=== PATIENT | male | born 1940 | race Caucasian/White ===

== ENCOUNTER 2018-09-15 12:58 | Inpatient (IN) | payer MEDICARE, OTHER ==
[~2018-09-15] VITALS: Ht 172.7 cm; Wt 96.7 kg
[~2018-09-15 12:58] MED LIST: ALLEGRA 180MG180 MG PO; ASPIRIN 81M81 MG/TA2 PO; CENTRUM SILVER1 TA1 PO; CLEOCIN HCL300 MG PO; FERROUS SULFATE65 MG PO; HCTZ12.5TAB PO; LIPITOR20 MG PO; MICARDIS80 MG PO; MOBIC15 MG PO; MULTAQ400 MG PO; PRILOSEC 20MG20 MG PO; TOPROL XL 50MG50 MG PO; TRICOR145 MG PO; ZYLOPRIM 300MG300 MG PO
[2018-10-26] VITALS (9 sets, daily range): BP systolic 100–131; BP diastolic 56–78; PULSE 54–74; TEMP 97.6–97.9
--- NOTE | 2018-10-26 09:36 | NUR ---
Initial visit; Patient and his thanked Extra Gang Supervisor for looking in on him and offering encouragement and prayer.
--- NOTE | 2018-10-26 13:10 | NUR ---
PATIENT BACK IN ROOM 327 POST OP RTH. VERY DROWSY. LEFT BEFORE PATIENT GOT BACK DUE TO BAD WEATHER. NO FAMILY AT BEDSIDE. PATIENT SLEEPING. VSS. NO C/O PAIN. RTH DRESSING IS CD&I WITH AQUACEL AND ICE PACK INPLACE. TEDS & SCD'S TO BLE. POSITIVE PEDAL PULSES TO BLE. PEREZ TO DEPENDENT DRAINAGE WITH SMALL AMOUNTS OF CLEAR YELLOW URINE NOTED. IV FLUIDS INFUSING VIA PUMP. NO C/O N/V. LIQUIDS AT BEDSIDE. HEAD TO TOE ASSESSMENT WNL. CALL LIGHT IN REACH.
--- NOTE | 2018-10-26 21:00 | NUR ---
Assessment completed. Patient is A&O x 4. VSS, currently on 2 liters of supplemental O2 via nasal cannula. Denied any pain while laying in bed. Reported a pain 2/10 after ambulating in the hallway, denied needing any pain medication. Aquacell dressing to right hip is CDI with an ice pack applied to hip. Pedal pulses intact. BLE aron hose/scds on. Hurtado catheter to DD with yellow clear urine draining. Tolerating diet with no c/o nausea. IVF infusing with intermittent antibiotic per orders. Ambulated with assist x [address] this evening with walker and gait belt approximately 150 feet with a steady gait. Denies any concerns or needs at this time. Bed is in a low position with call light in reach.
[2018-10-27 04:46] VITALS: BP 108/53; PULSE 71; TEMP 97.6
--- NOTE | 2018-10-27 05:41 | NUR ---
Patient has rested well through the night. VSS. Reports minimal pain to right hip that is controlled with the scheduled Tylenol, denies needing anything else for pain. Aquacell dressing to right hip remains CDI with a fresh ice pack applied this morning. Hurtado catheter remains to DD with yellow clear urine draining. IVF infusing with last antibiotic this morning then will be INT. Denies any concerns or needs at this time. Bed remains in a low position with call light in reach.
--- NOTE | 2018-10-27 06:45 | NUR ---
appears to be dozing but awakens easily, bedside shift report received from MINH Sosa
--- NOTE | 2018-10-27 06:50 | NUR ---
awake resting in bed, bedside shift report received from MINH Sosa
[2018-10-27 07:07] LABS: HEMOGLOBIN 11.2 g/dl (13.5-18.0)
[2018-10-27 07:32] VITALS: BP 102/53; PULSE 68; TEMP 97.9
--- NOTE | 2018-10-27 07:50 | NUR ---
resting in bed and breakfast ordered, full assessment completed, see interventions for further info, informed him that the scheduled tylenol he had been receiving was not scheduled now and if began having pain or discomfort would need to ask for pain meds, verbalizes understanding
--- NOTE | 2018-10-27 09:40 | NUR ---
physical therapy in to work with patient, ambulated out into stein and then back to room and into recliner
[2018-10-27 11:37] VITALS: BP 94/53; PULSE 65; TEMP 97.5
--- NOTE | 2018-10-27 12:15 | NUR ---
resting in recliner, has ordered lunch
[2018-10-27 13:03] VITALS: BP 107/57; PULSE 68
--- NOTE | 2018-10-27 13:12 | NUR ---
ambulated out to stein with physical therapy for group exercises
--- NOTE | 2018-10-27 14:15 | NUR ---
resting in bed, garay catheter discontinue, tolerated well
--- NOTE | 2018-10-27 14:21 | NUR ---
returned to room after therapy and into bed to rest,
--- NOTE | 2018-10-27 15:33 | NUR ---
SW met with the patient to discuss discharge plan. The patient lives in [place] with his , Robbin. He reports independence with ADLs and has a cane and walker. The patient's PCP is Dr. Ronni Daniel and he receives his medications on [facility]. The patient does not have advanced directives in EMR, but he states that he does have them completed. The patient plans to return home with his upon discharge and receive outpatient therapy at [facility] on 10/29. No additional needs at this time.
[2018-10-27 15:53] VITALS: BP 105/48; PULSE 71; TEMP 98
--- NOTE | 2018-10-27 16:20 | NUR ---
resting in bed without c/os
--- NOTE | 2018-10-27 18:19 | NUR ---
watching TV, had supper and tolerated well
--- NOTE | 2018-10-27 18:49 | NUR ---
bedside shift report given to MINH Sosa
--- NOTE | 2018-10-27 19:55 | NUR ---
Assessment completed. Patient is A&O x 4. VSS, on room air. Reports minimal pain, requested prn Tylenol. Aquacell dressing to right hip is CDI with a fresh ice pack applied. Pedal pulses intact. BLE aron hose/scds on. Tolerating diet with no c/o nausea. Voiding with no difficulities. INT to left forearm. Up with standby assist with walker and gait belt. ambulated 100 feet in the hallway this evening with staff. Denies any concerns or needs. Bed is in a low position with call light in reach.
[2018-10-27 20:07] VITALS: BP 105/54; PULSE 66; TEMP 98.7
[2018-10-28] VITALS (8 sets, daily range): BP systolic 96–122; BP diastolic 43–61; PULSE 63–93; TEMP 97.9–99.3
--- NOTE | 2018-10-28 00:55 | NUR ---
Patient sitting up on the edge of the bed stating he had a dream and thought for a minute he was at home but was able to remember he was in the hospital. Assisted with RLE back into bed and a fresh ice pack applied to hip. Patient denies any pain at this time. No concerns or needs. Bed is in a low position with call light in reach.
--- NOTE | 2018-10-28 03:29 | NUR ---
Bed alarm sounding. Patient getting out of bed when this nurse entered room without calling for assistance or using the walker. Reminded patient that he needs ot call when he needs to use the restroom. Steady gait with walker to restroom with standby assistance. Bed alarm on for impulsiveness with call light in reach.
--- NOTE | 2018-10-28 04:50 | NUR ---
Bed alarm sounding again, patient sitting up on the edge of the bed. When asked what he was doing he responded that he was going to take the girls home, once the light was turned on patient looked around and stated that he "must be dreaming again or it's the side effects from the funny juice." Assisted patient back into bed. Bed remains in a low position with bed alarm on and call light within reach.
--- NOTE | 2018-10-28 06:01 | NUR ---
Patient rested well the beginning of the shift and has been up multiple times without using the call light setting off the bed alarm, has had some forgetfulness through the night but has been able to easily re-orientate himself to situation. VSS. Continues to report minimal pain, prn Tylenol given. Aquacell dressing to right hip remains CDI with an ice pack maintained. Up with standby assist through the night with walker to the restroom, gait remains steady. Denies any concerns or needs at this time. Bed remains in a low position with bed alarm on for impulsivness with call light in reach.
[2018-10-28 06:39] LABS: HEMOGLOBIN 10.5 g/dl (13.5-18.0)
[2018-10-28 06:44] LABS: HEMATOCRIT 31.5 % (42.0-52.0)
--- NOTE | 2018-10-28 07:15 | NUR ---
Report given to MINH Faye
--- NOTE | 2018-10-28 08:00 | NUR ---
PATIENT IS ORIENTED X2. PATIENT WILL DISPLAY OCCATIONAL CONFUSION/FORGETFULNESS. ASIC DESIGN ENGINEER REPORTS PATIENT WAS CONFUSED LAST NIGHT AND TRIED TO GET UP SEVERAL TIMES SETTING OFF THE BED ALARM. PATIENT IS HIGH RISK TO FALL. PATIENT SEEMS MORE ORIENTED TODAY STATING "DO YOU EVER HAVE PATIENTS WHO HAVE VIVID DREAMS AND THEY THINK THEY ARE TRUE"? PATIENT EDUCATED ABOUT NARCOTICS. PATIENT REPORTS MINIMAL PAIN. NO NARCOTICS GIVEN. AM MEDS GIVEN. WHEN OFFERED BREAKFAST WITH MORNING PILLS, PATIENT WAS CONVINCED HE ALREADY ATE. NO BREAKFAST HAD BEEN ORDERED. PATIENT GIVEN COFFEE INSTEAD. RIGHT HIP DRESSING IS CD&I WITH AQUACEL. TEDS TO BLE. SCD'S CURRENTLY OFF. POSITIVE PEDAL PULSES TO BLE. PATIENT DRINK/VOIDING SUFFICENT AMOUNTS. HEAD TO TOE ASSESSMENT COMPLETE. PATIENT ASSISTED TO BEDSIDE CHAIR WITH CHAIR ALARM INPLACE AND CALL LIGHT IN REACH.
--- NOTE | 2018-10-28 10:25 | NUR ---
PATIENT CAUGHT SETTING OFF CHAIR ALARM. PATIENT DOESN'T SEEM TO REMEMBER TO CALL OF ASSISTANCE OR USE HIS WALKER. WHEN ALARM GOES OFF PATIENT IS OFTEN ALREADY STANDING AND MOVING AROUND ROOM. HE DOESN'T SEEM TO KNOW WHAT HE WANTS, JUST LIKES STRETCHING HIS LEGS. PATIENT GOING FOR A WALK IN THE HALLS WITH STAFF.
--- NOTE | 2018-10-28 11:30 | NUR ---
PATIENT FOUNDING SETTING OFF CHAIR ALARM AGAIN TRYING TO SAY GOOD BYE TO HIS VISITORS. CHAIR ALARM WENT OFF. PATIENT EDUCATED ABOUT SAFETY.
--- NOTE | 2018-10-28 12:22 | NUR ---
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 Nonfarm Animal Caretaker offered encouragement and God's blessings.
[2018-10-28 16:30] LABS: ALBUMIN 2.9 gm/dL (3.5-5.0); BILIRUBIN,TOTAL 0.4 mg/dL (0.0-1.0); CALCIUM 8.9 mg/dL (8.4-10.2); CREATININE, serum 0.94 mg/dL (0.66-1.25); TOTAL PROTEIN 5.5 gm/dL (6.4-8.2)
--- NOTE | 2018-10-28 19:50 | NUR ---
Pt. sitting up in bed watching TV at this time. Pt. is A&OX3, assessment complete. Dressing to rt. hip CDI. Pt. denies pain or other needs, call light within reach.
[2018-10-29 03:51] VITALS: BP 143/65; PULSE 77; TEMP 97.6
--- NOTE | 2018-10-29 06:50 | NUR ---
bedside shift report received from MINH Denton
[2018-10-29 08:45] VITALS: BP 116/69; PULSE 87; TEMP 99.9
--- NOTE | 2018-10-29 08:45 | NUR ---
sitting up in chair and has had breakfast, is alert and oriented this am, full assessment completed, see interventions for further info, medicated with tylenol 1000mg in anticipation of therapy
--- NOTE | 2018-10-29 09:01 | NUR ---
ambulated out to stein with physical therapy for group exercises
--- NOTE | 2018-10-29 10:30 | NUR ---
remains up in recliner after therapy
[2018-10-29 12:00] VITALS: BP 124/48; PULSE 82; TEMP 98
--- NOTE | 2018-10-29 12:00 | NUR ---
up and about in room independently, aquacel dressing to right hip removed, incision intact, covered with steri strips and then airstrip dressing
[2018-10-29] MEDS ORDERED: ASPI325T6 PO (13:16)
[2018-10-29] MEDS ORDERED: CELEBREX 200MG200 MG PO (13:17)
[2018-10-29] MEDS ORDERED: ULTRAM 50MG TAB50 MG PO (13:17)
--- NOTE | 2018-10-29 13:52 | NUR ---
Dr Richey was in to see patient, will plan discharge later this afternoon
--- NOTE | 2018-10-29 14:02 | NUR ---
The patient is to discharge back home with his today, 10/29, and begin outpatient [facility]. SW presented and explained the IM form to the patient. The patient verbalized understanding, signed, and he was provided a copy. No additional needs at this time.
--- NOTE | 2018-10-29 15:40 | NUR ---
discharge instructions given to patient and his , verbalizes understanding
--- NOTE | 2018-10-29 15:50 | NUR ---
discharged per WC
== END 2018-10-29 15:50 | disposition home or self-care (01) | DRG 470 ==
LOC: JCC 10-26 06:55
PROVIDERS: ADMIT Orthopaedic Surgery
PROC: 0SR90JA Replacement of Right Hip Joint with Synthetic Substitute, Uncemented, Open Approach (ICD-10-PCS; principal; 2018-10-26 10:30)
DX: M16.11 Unilateral primary osteoarthritis, right hip (principal); I10 Essential (primary) hypertension; I48.91 Unspecified atrial fibrillation; I25.10 Atherosclerotic heart disease of native coronary artery without angina pectoris; Z87.891 Personal history of nicotine dependence; Z95.0 Presence of cardiac pacemaker; E78.5 Hyperlipidemia, unspecified; Z85.828 Personal history of other malignant neoplasm of skin; I48.0 Paroxysmal atrial fibrillation
CPT/HCPCS: A4314; A9284; C1713; C1776; J0690; J1100; J2250; J2405; J2704; J3010; J7030; J7120

== ENCOUNTER → 2018-10-11 | Outpatient (CLI) | payer MEDICARE, OTHER | LOC: COL.LAB 09:38 | DX: Z01.812 Encounter for preprocedural laboratory examination (principal) ==

== ENCOUNTER 2023-10-20 06:49 | Day surgery (SDC) | payer MEDICARE, OTHER ==
[~2023-10-20] VITALS: Ht 172.7 cm; Wt 77.0 kg
[2023-10-20] VITALS (9 sets, daily range): BP systolic 97–127; BP diastolic 58–82; PULSE 60–67; TEMP 97.9
[~2023-10-20 06:49] MED LIST changes: +ASPI325T6 PO; +CELEBREX 200MG200 MG PO; +ULTRAM 50MG TAB50 MG PO
[2023-10-20] MEDS ORDERED: 1/2 NS 1,000 ML IV SCH (07:15)
[2023-10-20 07:53] LABS: HEMATOCRIT 38.8 % (42.0-52.0); HEMOGLOBIN 12.9 g/dl (13.5-18.0); MEAN CELL VOLUME 99 fl (80.0-100.0); MEAN CORPUSCULAR HEMOGLOBIN 33 pg (27-31); MEAN CORPUSCULAR HGB CONC 33 g/dl (33.0-37.0); MEAN PLATELET VOLUME 13.4 fl (7.4-10.4); RED BLOOD COUNT 3.91 M/mm3 (4.20-5.60); REDCELL DISTRIBUTION WIDTH-CV 14.6 % (11.5-14.5)
[2023-10-20] MEDS ORDERED: ASPIRIN 81M81 MG/TA2 PO (07:53)
[2023-10-20] MEDS ORDERED: MICARDIS HCT 121 TA1 PO (07:55)
[2023-10-20] MEDS ORDERED: MOBIC15 MG PO (07:57)
[2023-10-20 08:05] LABS: CALCIUM 9.2 mg/dL (8.4-10.2); CREATININE, serum 1.86 mg/dL (0.72-1.25)
[2023-10-20 08:07] LABS: POTASSIUM 5.1 mmol/L (3.5-4.5)
[2023-10-20 08:10] LABS: INR 1.1 (0.8-3.0); PROTHROMBIN TIME 12.3 SECONDS (9.7-12.8)
[2023-10-20 08:38] LABS: PLATELET COUNT 208 K/mm3 (130-400)
--- NOTE | 2023-10-20 09:38 | NUR ---
Please see merge documentation for record of interventions, vitals and medications administered during generator change.
[2023-10-20] MEDS ORDERED: NS 1,000 ML IV.SOLN. IR SCH (10:04)
[2023-10-20] MEDS ORDERED: Vancomycin 1 GM VIAL IR SCH (10:05)
[2023-10-20] MEDS ORDERED: Midazolam 2 MG/2 ML VIAL IV SCH (10:06)
[2023-10-20] MEDS ORDERED: fentaNYL 50 MCG/ML 2 ML VIAL IV SCH (10:07)
[2023-10-20] MEDS ORDERED: CLEOCIN HCL300 MG PO (11:41)
--- NOTE | 2023-10-20 12:58 | NUR ---
Pt ambulated to EU14 with a steady gait, accompanied by daughter and son-in-law. Pt is scheduled for a gen change. EKG done. IV started L forearm 20g, labs drawn. Consent for the procedure signed. Pt was taken to the general production laborer for the procedure. Post procedure the pt came back to EU14 to recover. Dressing on chest was assessed. The dressing remained clean, dry, and intact during the recovery. Pt was offered something to eat and drink, accepted a muffin and a sprite. Recovered with us for about 2hrs. At the end of the recovery the pt was given discharge education and information. No questions at this time. IV dc'd and site wrapped in coban. Pt exited the unit by wheelchair to son-in-laws truck.
== END 2023-10-20 12:50 | disposition home or self-care (01) ==
LOC: COL.CAR 06:49
PROVIDERS: Internal Medicine Cardiovascular Disease
DX: Z45.010 Encounter for checking and testing of cardiac pacemaker pulse generator [battery] (principal)
CPT/HCPCS: J0665; J2250; J3010; J3370; J7030; J7050

== ENCOUNTER 2023-11-25 05:13 | Inpatient (IN) | payer MEDICARE, OTHER ==
[~2023-11-25] VITALS: Ht 172.7 cm; Wt 76.8 kg
[~2023-11-25 05:13] MED LIST changes: +ELIQUIS 2.5 PO; +MICARDIS HCT 121 TA1 PO; -TOPROL XL 50MG50 MG PO; +TOPROL XL100 MG PO
[2023-11-30] VITALS (9 sets, daily range): BP systolic 124–140; BP diastolic 73–78; PULSE 60–80; TEMP 97.8–98.7
[2023-11-30] MEDS ORDERED: Magnes Hydrox (MOM) 80 MG/ML 30 ML CUP PO PRN (08:15)
[2023-11-30] MEDS ORDERED: Bisacodyl 5 MG TAB PO PRN (08:15)
[2023-11-30] MEDS ORDERED: Ondansetron 4 MG/2 ML VIAL IV PRN (08:15)
[2023-11-30 08:49] LABS: BASO # 0.1 K/mm3 (0.0-0.2); BASO % 0.9 % (0.0-2.0); EOS # 0.2 K/mm3 (0.0-0.7); EOS % 3.1 % (0.0-4.0); GRAN # 4.1 K/mm3 (1.4-6.5); GRAN % 74.6 % (42.2-75.2); HEMOGLOBIN 12.4 g/dl (13.5-18.0); LYMPH # 0.7 K/mm3 (1.2-3.4); LYMPH % 12.5 % (20.0-51.0); MEAN CELL VOLUME 97 fl (80.0-100.0); MEAN CORPUSCULAR HEMOGLOBIN 33 pg (27-31); MEAN CORPUSCULAR HGB CONC 34 g/dl (33.0-37.0); MEAN PLATELET VOLUME 12.8 fl (7.4-10.4); MONO # 0.5 K/mm3 (0.1-0.6); MONO % 8.5 % (1.7-9.3); PLATELET COUNT 185 K/mm3 (130-400); RED BLOOD COUNT 3.76 M/mm3 (4.20-5.60)
[2023-11-30 08:50] LABS: HEMATOCRIT 36.6 % (42.0-52.0)
[2023-11-30 08:52] LABS: INR 1.9 (0.8-3.0); PROTHROMBIN TIME 20.9 SECONDS (9.7-12.8)
[2023-11-30 09:14] LABS: ALBUMIN 3.7 gm/dL (3.4-4.8); BILIRUBIN,TOTAL 1.1 mg/dL (0.2-1.2); CALCIUM 9.2 mg/dL (8.4-10.2); CREATININE, serum 1.64 mg/dL (0.72-1.25); POTASSIUM 4.3 mmol/L (3.5-4.5); TOTAL PROTEIN 5.9 gm/dL (6.2-8.1)
[2023-11-30 09:32] LABS: MAGNESIUM 1.4 mg/dL (1.6-2.6)
--- NOTE | 2023-11-30 10:58 | NUR ---
asbestos hazard abatement worker met with patient and his daughter, Светлана at bedside to discuss discharge planning. Pt confirms his DPOA-HC is his daughter and grandson, Luis. SW verified this is on file. Pt reports his has . Pt states he lives alone in [place]. He sees Dr. Daniel and obtains medications from [facility] or delivery from [facility] with no difficulties. He is independent with ADLS and uses a cane for DME. He was informed PT/OT will come see him for assessing mobility. Pt intends to return home upon discharge. PT/OT Pending Discharge Plan: tbd, home
--- NOTE | 2023-11-30 20:55 | NUR ---
Patient assessed at this time. Alert and oriented, and able to make needs known. Denies having pain and discomfort. Peripheral INT to left forearm. Denies SOB and dyspnea. LS CTA. HRI. Telemetry in place: Vpaced. Voices no questions or concerns about Sotalol at this time. Aware of plan for daily EKG and labs. BSAx4. No edema. Voices no questions, needs, or concerns at this time. In bed with call light within reach.
[2023-11-30] MEDS ORDERED: Apixaban 2.5 MG TAB PO SCH (21:00)
[2023-11-30] MEDS ORDERED: Melatonin 3 MG TAB PO PRN (21:00)
[2023-12-01] VITALS (11 sets, daily range): BP systolic 133–167; BP diastolic 75–102; PULSE 65–83; TEMP 97.4–98.3
--- NOTE | 2023-12-01 06:06 | NUR ---
Patient has voiced no questions, needs, or concerns this shift. QTC this morning 514. Denies having pain and discomfort. In bed with call light within reach.
[2023-12-01] MEDS ORDERED: Omeprazole 20 MG **** subs to Pantoprazole 40 MG PO SCH (07:00)
[2023-12-01 07:02] LABS: BASO # 0.1 K/mm3 (0.0-0.2); BASO % 1.3 % (0.0-2.0); EOS # 0.2 K/mm3 (0.0-0.7); GRAN # 2.5 K/mm3 (1.4-6.5); GRAN % 64.9 % (42.2-75.2); HEMOGLOBIN 11.2 g/dl (13.5-18.0); LYMPH # 0.7 K/mm3 (1.2-3.4); LYMPH % 17.1 % (20.0-51.0); MEAN CELL VOLUME 98 fl (80.0-100.0); MEAN CORPUSCULAR HEMOGLOBIN 33 pg (27-31); MEAN CORPUSCULAR HGB CONC 34 g/dl (33.0-37.0); MEAN PLATELET VOLUME 13.1 fl (7.4-10.4); MONO # 0.4 K/mm3 (0.1-0.6); MONO % 10.4 % (1.7-9.3); PLATELET COUNT 155 K/mm3 (130-400); RED BLOOD COUNT 3.41 M/mm3 (4.20-5.60); REDCELL DISTRIBUTION WIDTH-CV 14.1 % (11.5-14.5)
[2023-12-01 07:07] LABS: HEMATOCRIT 33.4 % (42.0-52.0)
[2023-12-01 07:20] LABS: CALCIUM 8.9 mg/dL (8.4-10.2); CREATININE, serum 1.6 mg/dL (0.72-1.25); POTASSIUM 3.7 mmol/L (3.5-4.5)
--- NOTE | 2023-12-01 07:32 | NUR ---
DR ALEXANDER CALLED @ 0732 FOR PT QTC OF [address] ON EKG THIS [address]ING[address]. ALEXANDER GAVE VERBAL ORDER TO HOLD DOSE OF SOTALOL THIS MORNING AND THEY WILL TAKE A LOOK AT PT AND CHART THIS MORNING
[2023-12-01] MEDS ORDERED: Allopurinol 300 MG TAB PO SCH (09:00)
[2023-12-01] MEDS ORDERED: Fenofibrate 54 MG TABLET PO SCH (09:00)
[2023-12-01] MEDS ORDERED: Losartan 50 MG,hydroCHLOROthiazide 12.5 MG PO SCH (09:00)
[2023-12-01] MEDS ORDERED: Meloxicam 7.5 MG TAB PO SCH (09:00)
[2023-12-01] MEDS ORDERED: Atorvastatin 20 MG TAB PO SCH (09:00)
[2023-12-01] MEDS ORDERED: Magnesium Sulfate 4% 50 ML IV ONE (09:30)
--- NOTE | 2023-12-01 11:05 | NUR ---
Initial visit; Seasonal Customer Service Associate and patient acquainted and enjoyed a visit and prayer together. 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 Seasonal Customer Service Associate offered God's blessings to Rachid and his daughter following their prayer together. Seasonal Customer Service Associate will follow-up.
--- NOTE | 2023-12-01 20:31 | NUR ---
Patient assessed at this time. Alert and oriented, and able to make needs known. Denies having pain and discomfort at this time. Peripheral INT to left forearm. Denies SOB and dyspnea. LS CTA. HRI. Telemetry in place. Aware of plan for cardioversion tomorrow if he does not convert, and that he will be NPO after midnight. BSAx4. Voices no questions, needs, or concerns at this time. In bed with call light within reach.
[2023-12-02] VITALS (9 sets, daily range): BP systolic 139–157; BP diastolic 80–98; PULSE 69–76; TEMP 97.9–98.2
--- NOTE | 2023-12-02 05:31 | NUR ---
Patient has denied pain and discomfort this shift. Has been NPO since midnight for cardioversion, except took medication with sip of water. QTC this morning 458. Voices no questions, needs, or concerns at this time. In bed with call light within reach.
[2023-12-02 07:11] LABS: BASO % 0.9 % (0.0-2.0); EOS # 0.3 K/mm3 (0.0-0.7); EOS % 5.4 % (0.0-4.0); GRAN # 3.2 K/mm3 (1.4-6.5); HEMOGLOBIN 11.9 g/dl (13.5-18.0); LYMPH # 0.8 K/mm3 (1.2-3.4); LYMPH % 16.2 % (20.0-51.0); MEAN CELL VOLUME 99 fl (80.0-100.0); MEAN CORPUSCULAR HEMOGLOBIN 33 pg (27-31); MEAN CORPUSCULAR HGB CONC 33 g/dl (33.0-37.0); MEAN PLATELET VOLUME 13.3 fl (7.4-10.4); MONO # 0.4 K/mm3 (0.1-0.6); MONO % 9.1 % (1.7-9.3); PLATELET COUNT 158 K/mm3 (130-400); RED BLOOD COUNT 3.63 M/mm3 (4.20-5.60); REDCELL DISTRIBUTION WIDTH-CV 14.1 % (11.5-14.5)
[2023-12-02 07:23] LABS: HEMATOCRIT 35.9 % (42.0-52.0)
[2023-12-02 07:28] LABS: CREATININE, serum 1.42 mg/dL (0.72-1.25); POTASSIUM 3.9 mmol/L (3.5-4.5)
--- NOTE | 2023-12-02 07:30 | NUR ---
Patient wanting more information with anesthesia before signing consent
--- NOTE | 2023-12-02 07:30 | NUR ---
Patient sleeping in bed, easily awakened with verbal command. A&Ox4. VSS. IV CDI. Denies pain and discomfort. Call light within reach. Patient NPO for a procedure
[2023-12-02] MEDS ORDERED: LR 1,000 ML IV SCH (07:45)
[2023-12-02] MEDS ORDERED: Magnesium Sulfate 4% 50 ML IV ONE (09:15)
--- NOTE | 2023-12-02 10:27 | NUR ---
Follow-up visit; Patient about to have a 'Procedure' from Dr. Braga. assured him he is in wonderful hands and wished him the best with a prayer. Rachid thanked again for her visits and prayers.
[2023-12-02] MEDS ORDERED: Lidocaine PF 2% (20 MG/ML) 5 ML VIAL ONE (10:56)
--- NOTE | 2023-12-02 11:35 | NUR ---
Patient to room 310 from a procedure. Patient A&Ox4. VSS. IV CDI, fluids by gravity. Denies pain and discomfort. Nurse oriented the patient to location, call light and room. Post op VS monitored. Call light within reach
[2023-12-02] MEDS ORDERED: Hydrocortisone 1% Cream 30 GM TUBE TP PRN (11:45)
[2023-12-02] MEDS ORDERED: BETAPACE 80MG80 MG PO (13:24)
--- NOTE | 2023-12-02 13:34 | NUR ---
rehabilitation worker notes patient has discharge orders in by Cardiology. PT/OT reccomend home for patient. Discharge Plan: Home
--- NOTE | 2023-12-02 14:16 | NUR ---
Discharge paperwork reviewed with the patient and family at the bedside. Patient verbalized an understanding to follow doctors orders. IV removed, tip intact. Gauze and coban applied. Patient getting dressed. No further needs expressed. Call light within reach
--- NOTE | 2023-12-02 14:24 | NUR ---
Patient transfered by wheelchair to awaiting vehicle.
== END 2023-12-02 14:25 | disposition home or self-care (01) | DRG 310 ==
LOC: MEDICAL 11-30 05:13
PROVIDERS: ADMIT Internal Medicine Cardiovascular Disease
PROC: 5A2204Z Restoration of Cardiac Rhythm, Single (ICD-10-PCS; principal; 2023-12-02)
DX: I48.91 Unspecified atrial fibrillation (principal); I08.0 Rheumatic disorders of both mitral and aortic valves; I48.92 Unspecified atrial flutter; I10 Essential (primary) hypertension; K21.9 Gastro-esophageal reflux disease without esophagitis; I25.10 Atherosclerotic heart disease of native coronary artery without angina pectoris; Z95.0 Presence of cardiac pacemaker; Z88.0 Allergy status to penicillin; Z23 Encounter for immunization
CPT/HCPCS: J2704; J3475